=== PATIENT | female | born 1985 | race Caucasian/White ===

== ENCOUNTER 2017-12-23 11:41 | Inpatient (IN) | payer MEDICAID, BC ==
[2017-12-23] MEDS ORDERED: CARBOPROST 250 MCG INJ IM ×2 (12:00→21:00)
[2017-12-23] MEDS ORDERED: METHYLERGONOVINE 0.2 MG INJ IM ×2 (12:00→21:00)
[2017-12-23] MEDS ORDERED: OXYTOCIN 30 UNITS/LR 500 ML IV ×2 (12:00→21:00)
[2017-12-23] MEDS ORDERED: LIDOCAINE 1% (MPF) 30 ML INJ INJ (12:00)
[2017-12-23] MEDS ORDERED: MISOPROSTOL 200 MCG TAB PR ×2 (12:00→21:00)
[2017-12-23] MEDS ORDERED: BUTORPHANOL 2 MG INJ IV (12:00)
[2017-12-23] MEDS: AMPICILLIN 2 GM/NS (PMX) 100 ML IV (12:31)
[2017-12-23] MEDS: LACTATED RINGER'S 1,000 ML IV ×3 (12:31→16:12)
[2017-12-23 12:37] LABS: ADD MAN DIFF? NO
[2017-12-23 12:41] LABS: WHITE BLOOD COUNT 9.9 10^3/ul (4.8-10.8)
[2017-12-23 12:41] LABS: BASOPHILS % 0.2 % (0.0-2.0); EOSINOPHILS % 0.2 % (0.0-7.0); HEMATOCRIT 35.4 % (37.0-47.0); HEMOGLOBIN 11.6 g/dl (12.0-16.0); LYMPHOCYTES # 1.1 10^3/ul (0.8-2.9); LYMPHOCYTES % 11.5 % (15.0-51.0); MEAN CORPUSCULAR HEMOGLOBIN 27.9 pg (29.0-33.0); MEAN CORPUSCULAR HGB CONC 32.8 g/dl (32.0-37.0); MEAN CORPUSCULAR VOLUME 85.1 fl (82.0-101.0); MEAN PLATELET VOLUME 12.3 fl (7.4-10.4); MONOCYTE # 0.6 10^3/ul (0.3-0.9); MONOCYTES % 6.3 % (0.0-11.0); NEUTROPHIL # 8.1 10^3/ul (1.6-7.5); NEUTROPHILS % 81.3 % (39.0-77.0); PLATELET COUNT 139 10^3/UL (140-415); RED BLOOD COUNT 4.16 10^6/ul (4.20-5.40)
[2017-12-23] MEDS ORDERED: LIDOCAINE 1% (MPF) 30 ML INJ (12:59)
[2017-12-23 13:00] LABS: INR 0.93; PROTIME 12.6 Sec (11.9-14.9)
[2017-12-23] MEDS ORDERED: FENTAnyl 2MCG/ML-ROPIV 0.2% 100 ML (13:10)
[2017-12-23 13:34] LABS: HEPATITIS B SURFACE ANTIGEN NEGATIVE (NEGATIVE)
[2017-12-23 13:37] LABS: PARTIAL THROMBOPLASTIN TIME 30.6 Sec (23.0-35.0)
[2017-12-23] MEDS ORDERED: NALOXONE (0.4 MG/ML) INJ IV (14:00)
[2017-12-23] MEDS: FENTAnyl 2MCG/ML-ROPIV 0.2% 100 ML BAG EPI (15:07)
[2017-12-23 15:17] LABS: RAPID PLASMA REAGIN NONREACTIVE (NR)
[2017-12-23] MEDS: AMPICILLIN 1 GM/NS (PMX) 50 ML IV ×2 (16:12→20:22)
[2017-12-23] MEDS: OXYTOCIN 30 UNITS/LR 500 ML IV ×2 (20:26→21:30)
[2017-12-23] MEDS ORDERED: SENNA/DOCUSATE NA (8.6MG/50MG) TAB PO (21:00)
[2017-12-23] MEDS ORDERED: DIBUCAINE 1% 30 GM OINT TOP (21:00)
[2017-12-23] MEDS ORDERED: ONDANSETRON 4 MG INJ IV (21:00)
[2017-12-23] MEDS ORDERED: ACETAMINOPHEN 325 MG TAB PO (21:00)
[2017-12-23] MEDS ORDERED: MAGNESIUM HYDROXIDE 30ML CUP PO (21:00)
[2017-12-23] MEDS: BENZOCAINE 20% 56 ML SPRAY TOP (23:47)
[2017-12-23] MEDS: WITCH HAZEL/GLYCERIN PAD PR (23:47)
[2017-12-23] MEDS: IBUPROFEN 600 MG TAB PO (23:48)
[2017-12-23] MEDS: LANOLIN 7 GM TUBE TOP (23:48)
[2017-12-24] MEDS: ACETAMINOPHEN 325 MG TAB PO (03:52)
[2017-12-24] MEDS: LACTATED RINGER'S 1,000 ML IV* (05:28)
[2017-12-24] MEDS: IBUPROFEN 600 MG TAB PO ×3 (05:28→17:53)
[2017-12-24 08:57] LABS: HEMATOCRIT 31.5 % (37.0-47.0); HEMOGLOBIN 10.2 g/dl (12.0-16.0); MEAN CORPUSCULAR HEMOGLOBIN 28.3 pg (29.0-33.0); MEAN CORPUSCULAR HGB CONC 32.4 g/dl (32.0-37.0); MEAN CORPUSCULAR VOLUME 87.5 fl (82.0-101.0); PLATELET COUNT 128 10^3/UL (140-415); RED CELL DISTRIBUTION WIDTH 15.1 % (11.5-14.5)
[2017-12-24 08:57] LABS: WHITE BLOOD COUNT 13.9 10^3/ul (4.8-10.8)
[2017-12-24 09:09] LABS: ADD MAN DIFF? YES
[2017-12-24] MEDS: OXYCODONE/ACETAMINOPHEN (5/325) TAB PO ×2 (13:46→20:12)
[2017-12-24] MEDS ORDERED: OXYCODONE/ACETAMINOPHEN (5/325) TAB PO (14:00)
[2017-12-24] MEDS: FENTAnyl 2MCG/ML-ROPIV 0.2% 100 ML BAG EPI (14:42)
[2017-12-25] MEDS: IBUPROFEN 600 MG TAB PO ×2 (04:19→10:13)
== END 2017-12-25 12:30 | disposition home or self-care (01) | DRG 807 ==
LOC: OBT 11:41 → L-D 11:41 → OBT 11:45 → L-D 11:45 → PP1 22:53
PROVIDERS: Obstetrics & Gynecology
PROC: 10E0XZZ Delivery of Products of Conception, External Approach (ICD-10-PCS; principal; 2017-12-23)
DX: O80 Encounter for full-term uncomplicated delivery (principal); Z37.0 Single live birth; Z3A.38 38 weeks gestation of pregnancy
CPT/HCPCS: 62319; 76815; 85025; 85610; 85730; 86592; 86850; 86900; 86901; 87340